=== PATIENT | female | born 1990 | race Caucasian/White ===

== ENCOUNTER 2023-06-06 09:28 | Inpatient (IN) | payer MEDICAID, OTHER ==
[~2023-06-06] VITALS: Ht 152.4 cm; Wt 48.5 kg
[2023-06-06 10:44] LABS: BASOPHILS % 0.4 % (0.0-2.0); HEMATOCRIT. 29.3 % (36.0-48.0); HEMOGLOBIN. 9.3 g/dL (12.0-16.0); LYMPHOCYTES % 11.7 % (20.0-50.0); MEAN CORPUSCULAR HEMOGLOBIN 21.5 pg (28.0-32.0); MEAN CORPUSCULAR HGB CONC 31.7 g/dL (31.0-37.0); MEAN CORPUSCULAR VOLUME 67.9 fL (81.0-99.0); MEAN PLATELET VOLUME 6.6 fl (7.4-10.4); MONOCYTES % 6.9 % (2.0-8.0); PLATELET 518 x1000/uL (130-400); RED BLOOD CELL COUNT 4.32 mill/uL (4.2-5.4); RED CELL DISTRIBUTION WIDTH 18.6 % (11.6-14.6); WHITE BLOOD COUNT 7.8 x1000/uL (4.5-11.0)
[2023-06-06 10:57] LABS: ALANINE AMINOTRANSFERASE 169 IU/L (10-49); ASPARTATE AMINOTRANSFERASE 118 IU/L (<34); BILIRUBIN TOTAL 0.5 mg/dL (0.1-1.0); CALCIUM 9.3 mg/dL (8.7-10.4); CARBON DIOXIDE 24 mEq/L (21-32); CHLORIDE 105 mEq/L (98-107); CREATININE 0.6 mg/dL (0.6-1.0); GLUCOSE 92 mg/dL (70-105); POTASSIUM 3.9 mEq/L (3.5-5.1); PROTEIN TOTAL 8.8 g/dL (6.0-8.3); SODIUM 135 mEq/L (136-145); UREA NITROGEN BLOOD 6 mg/dL (9-23)
[2023-06-06 10:58] LABS: HCG SCREEN NEGATIVE
[2023-06-06] MEDS: FAMOTIDINE 20MG TABLET PO ONE (11:03)
[2023-06-06 11:26] LABS: ADD RBC MORPHOLOGY YES; DIFFERENTIAL COMMENT 1
[2023-06-06 11:29] LABS: CLARITY URINE CLEAR (CLEAR); COLOR URINE YELLOW (YELLOW); GLUCOSE URINE NEGATIVE (NEGATIVE); KETONES URINE NEGATIVE (NEGATIVE); LEUKOCYTE ESTERASE URINE NEGATIVE (NEGATIVE); NITRITE URINE NEGATIVE (NEGATIVE); OCCULT BLOOD URINE TRACE (NEGATIVE); PH URINE 6.5 (4.5-8.0); PROTEIN URINE NEGATIVE (NEGATIVE); SPECIFIC GRAVITY URINE 1.004 (1.005-1.030); UROBILINOGEN URINE 0.2 E.U./dL (0.2-1.0)
[2023-06-06 11:56] LABS: RBC URINE 0-2 /hpf (0-2); SQUAMOUS EPITHELIAL CELL URINE 1+ /lpf (RARE/1+); WBC URINE 0-2 /hpf (0-2)
[2023-06-06 11:57] LABS: BACTERIA URINE TRACE; YEAST URINE NONE SEEN
[2023-06-06 12:09] LABS: ANISOCYTOSIS 1+; HYPOCHROMASIA 1+; MICROCYTOSIS 2+; PLATELET ESTIMATE INCREASED
[2023-06-07] VITALS: BP 113/60; PULSE 83; RESP 20; TEMP 97.5
[2023-06-07 01:27] VITALS: BP 113/60; PULSE 83; RESP 20; TEMP 97.5
[2023-06-07] MEDS ORDERED: ONDANSETRON HCL 4MG TABLET PO PRN (02:15)
[2023-06-07 04:00] VITALS: BP 105/55; PULSE 74; RESP 18; TEMP 98.5
[2023-06-07] MEDS: CEFTRIAXONE 1GM/50ML 50 ML IV SCH (06:00)
[2023-06-07] MEDS: PANTOPRAZOLE 40MG DR TABLET PO SCH (06:41)
[2023-06-07 08:00] VITALS: BP 117/68; PULSE 94; RESP 18; TEMP 98.4
[2023-06-07] MEDS ORDERED: ACETAMINOPHEN 325MG TABLET PO PRN ×2 (10:45→11:00)
[2023-06-07 12:00] VITALS: BP 113/63; PULSE 82; RESP 18; TEMP 98.5
[2023-06-07 14:06] VITALS: BP 111/40; PULSE 88; O2SAT 100
== END 2023-06-07 19:10 | disposition home or self-care (01) | DRG 251 ==
LOC: ER 09:28 → 5WST 15:03 → EDBEDREQ 15:06 → 6EST 23:49
PROVIDERS: ADMIT Internal Medicine; ATTEND Internal Medicine
DX: R10.9 Unspecified abdominal pain (principal); B37.9 Candidiasis, unspecified; D64.9 Anemia, unspecified; E03.9 Hypothyroidism, unspecified; R74.01 Elevation of levels of liver transaminase levels; R79.89 Other specified abnormal findings of blood chemistry; T36.8X5A Adverse effect of other systemic antibiotics, initial encounter
CPT/HCPCS: 36415; 74176; 76705; 80053; 80307; 81003; 84703; 85025; 99285; J0696